=== PATIENT | male | born 1975 | race American Indian/Alaskan Native ===

== ENCOUNTER 2020-07-11 10:09 | Outpatient (CLI) | payer OTHER ==
--- NOTE | 2020-07-11 13:18 | Magnetic Resonance Report ---
MRI LEFT ANKLE WITHOUT CONTRAST INDICATION / CLINICAL INFORMATION: INJURY TO TENDON LEFT LEG. TECHNIQUE: Multiplanar, multisequence MR images were obtained. No contrast used. COMPARISON: None available. FINDINGS: ACHILLES TENDON: The distal Achilles is markedly thickened with intermediate signal. There is a high- grade partial-thickness tear of the Achilles tendon. The tear is approximately 4.5 cm proximal to its distal attachment. Anterior/deep fibers remain intact. A majority of the tendon is torn in this harriet on. The tear is somewhat oblique longitudinal without significant retraction. There is trace fluid in the retrocalcaneal bursa. PLANTAR FASCIA: No significant abnormality. POSTERIOR TIBIAL / FLEXOR TENDONS: No significant abnormality. PERONEAL TENDONS: No significant abnormality. EXTENSOR TENDONS: No significant abnormality. TALOFIBULAR LIGAMENTS: Not well visualized and likely chronically torn. TIBIOFIBULAR LIGAMENTS: No significant abnormality. DISTAL TIBIOFIBULAR SYNDESMOSIS: No significant abnormality. CALCANEOFIBULAR LIGAMENT: No significant abnormality. DELTOID LIGAMENT: No significant abnormality. SPRING LIGAMENT: No significant abnormality. TIBIOTALAR ARTICULAR CARTILAGE: No chondrosis or articular cartilage defect. TIBIOTALAR JOINT SPACE: No significant joint effusion or synovitis. No intra-articular bodies. SUBTALAR JOINTS: No significant abnormality. SINUS TARSI: No significant abnormality. TARSAL TUNNEL: No significant abnormality. BONES: No significant bone marrow edema. No fracture. No osseous lesion. SUBCUTANEOUS SOFT TISSUES: No significant abnormality. ADDITIONAL FINDINGS: None. IMPRESSION: 1. High-grade partial-thickness tear of the Achilles tendon proximally 4.5 cm proximal to its distal insertion. The tear is somewhat longitudinal oblique without significant retraction. There is marked underlying distal Achilles tendinosis. Signer Name: Tonio Linares MD Signed: 07/11/2020 1:13 PM Workstation Name: [id number]
== END 2020-07-11 10:10 | disposition home or self-care (01) ==
LOC: MRI 10:09
PROVIDERS: ATTEND Specialist
DX: S86.012A Strain of left Achilles tendon, initial encounter (principal); X58.XXXA Exposure to other specified factors, initial encounter; Y93.89 Activity, other specified; Y92.89 Other specified places as the place of occurrence of the external cause; Y99.8 Other external cause status
CPT/HCPCS: 73721